=== PATIENT | male | born 1955 | race African-American/Black ===

== ENCOUNTER 2016-09-14 13:53 | Emergency (ER) | payer MEDICARE, OTHER ==
--- NOTE | ~2016-09-14 | CT2 ---
[facility] A Service of [facility] & [facility] RADIOLOGY TEXT RESULTS PATIENT: ROSALIA BUCK LOCATION: [facility] : 55 UNIT #: [id number] AGE: [address]: Margarito Morales DO SEX: M ORDER DR: [id number] [facility] [address] [place], [place] [address] [id number] MR#: [id number] Acc #: [id number] NAME: ROSALIA BUCK : 1955 SEX: M STUDY DATE/TIME: 09/14/2016 15:44 UNIT: [facility] ROOM: STUDY DESCRIPTION: CT Abd and Pelv W Cont Attending Physician: Margarito Morales D.O. Referring Physician: Manny Loaz M.D. Ordering Physician: Margarito Morales D.O. Primary Care Physician: Manny Loza M.D. MEDICAL IMAGING REPORT This report is preliminary unless electronic signature is present EXAM CT abdomen pelvis HISTORY Diarrhea and nausea since yesterday. Patient seen at [facility] yesterday for same. Watery diarrhea for 2 days. Previous stroke. Chest pain. Neck x2 surgery. FINDINGS This CT exam was performed with one or more of the following radiation dose reduction techniques: Automatic exposure control, adjustment of mA and/or kV according to patient size, and iterative reconstruction. CT of the abdomen and pelvis performed with intravenous administration 80 mL Isovue-370. Enteric contrast not administered. Comparison 06/21/2016. Dependent atelectasis at lung bases. Inferior heart and pericardium unremarkable. Liver, gallbladder, spleen, pancreas, adrenal glands, kidneys unremarkable. CT PELVIS: The testes are retracted into the inguinal canals. Similar appearance on prior study. Urinary bladder unremarkable. No pelvic or retroperitoneal adenopathy. Small to moderate hiatal hernia stable. Remainder of visualized distal esophagus and stomach unremarkable. Small bowel normal. I believe patient retains normal appendix. There is a large volume of stool seen throughout the colon. There is particularly large stool burden in the rectum, which is abnormally distended to about 8 cm in diameter. On prior examination, it measured about 8.8 cm in diameter. Overall stool burden even more pronounced on the prior study. On the prior examination, there was a several centimeter segment of mural thickening in the more proximal sigmoid colon. This is not present on today's examination. There is some mild wall thickening at the most inferior aspect of the rectum without focal mass lesion seen. This might be reactive edema secondary to the large stool burden in the rectum and STS. [facility] A Service of [facility] RADIOLOGY TEXT RESULTS PATIENT: ROSALIA BUCK LOCATION: [facility] : 55 UNIT #: [id number] AGE: [address]: Margarito Morales DO SEX: M ORDER DR: presumed constipation or fecal impaction. Followup recommended. No free air. No fluid collection in abdomen and pelvis. The vascular structures appear of overall normal caliber. Bony structures show spinal degenerative change but no acute abnormality. IMPRESSION 1. Findings most in keeping with marked constipation or fecal impaction. There is a large volume of stool seen throughout the colon and a particularly large volume in the rectum, which is distended up to 8 cm in diameter. Similar constellation of findings on prior examination, though there was even larger stool burden on the prior study in June 2016 and rectal distension was even more pronounced on the prior examination. Please correlate clinically. Proximal to the rectum, while the colon is distended, it does not appear pathologically dilated. 2. Previously seen segment of concentrically thickened sigmoid colon proximal to the rectum on prior examination is no longer evident. There is some mild wall thickening in the distal rectum immediately beyond the large stool ball in the rectum. This may be a reflection of reactive edema secondary to constipation or fecal impaction. No eccentric mass lesion is seen. No obstructing process is suggested. 3. Small bowel and appendix unremarkable. 4. Stable mild to moderate hiatal hernia. 5. Gallbladder, pancreas, kidneys unremarkable. 6. See remainder of incidental findings in body of report above. Dictated by... Tramaine Jackson M.D. THIS IS AN ELECTRONICALLY VERIFIED REPORT Tramaine Jackson M.D. at 09/14/2016 10:42 PM TONYA/jerman TD: 09/14/2016 18:58 JOB #: [id number] MEDICAL IMAGING REPORT Page 1 of 1 COPY
[~2016-09-14 13:53] MED LIST: ACETAMINOPHEN PO; ASPIRIN81 M2 PO; BACLOFEN10 MG PO; CALCIUM + VITAM1 TAB PO; DOCUSATE SODIU100 MG PO; EUCERIN CALM I200 ML TP; FLAGYL250 MG PO; FOSAMAX70 MG PO; METOCLOPRAMIDE H5 MG PO; MOBIC PO; PROTONIX PO; SELSUN BLUE325 ML; VITAMIN D400 UNI2 PO
[2016-09-14 14:34] LABS: BASOPHIL# 0.1 X10e3 (0-0.3); BASOPHIL% 1.4 % (0-2.5); EOSINOPHIL# 0.1 X10e3 (0-0.7); EOSINOPHIL% 2.7 % (0.0-7.0); HEMATOCRIT 39.2 % (38.0-50.0); HEMOGLOBIN 12.5 gm/dL (13.0-16.0); LYMPHOCYTE% 19.4 % (17.0-45.0); MEAN CELL VOLUME 79.5 FL (83-96); MEAN CORPUSCULAR HEMOGLOBIN 25.4 PG (28-34); MEAN CORPUSCULAR HGB CONC 31.9 g/dL (30-36); MEAN PLATELET VOLUME 7.5 FL (6.5-11.5); MONOCYTE# 0.4 X10e3 (0-1.0); MONOCYTE% 8.7 % (3.0-12.0); NEUTROPHIL# 3.4 X10e3 (1.5-7.1); NEUTROPHIL% 67.8 % (40-75); PLATELET COUNT 363 X10e3 (140-420); RED BLOOD COUNT 4.93 X10e (3.90-5.60)
[2016-09-14 14:39] LABS: DIFF IND NO
[2016-09-14 15:13] LABS: BILIRUBIN, DIRECT 0.1 mg/dL (0.0-0.2); BILIRUBIN,INDIRECT 0.5 mg/dL (0.0-0.9); BILIRUBIN,TOTAL 0.6 mg/dL (0.2-2.0); BUN/CREATININE RATIO 14.44; CALCIUM SERUM 9.5 mg/dL (8.4-10.2); CREATININE SERUM 0.9 mg/dL (0.6-1.4); GLOM FILT RATE Estimated 106.5 mL/min (>60); POTASSIUM 3.9 mmol/L (3.5-5.1)
[2016-09-14 16:47] LABS: URINE APPEARANCE CLEAR; URINE BILIRUBIN NEG (NEG); URINE BLOOD NEG (NEG); URINE COLOR YELLOW; URINE GLUCOSE NEG (NEG); URINE KETONE 1+ (NEG); URINE LEUKOCYTE ESTERASE NEG (NEG); URINE NITRATE NEG (NEG); URINE PROTEIN NEG (NEG); URINE SPECIFIC GRAVITY 1.017 (1.003-1.035); URINE UROBILINOGEN 0.2 MG/DL (NEG)
[2016-09-14 16:49] LABS: CULTURE INDICATED? NO; URINE SOURCE CATH
== END 2016-09-14 18:57 | disposition home or self-care (01) ==
LOC: CED 13:53
PROVIDERS: Emergency Medicine
DX: K59.00 Constipation, unspecified (principal)
CPT/HCPCS: 36415; 51701; 74177; 80048; 80076; 81003; 83690; 85025; 99284; Q9967